=== PATIENT | female | born 1990 | race Caucasian/White ===

== ENCOUNTER → 2016-07-11 | Outpatient (REF) | payer OTHER | LOC: M LAB REF 20:26 | PROVIDERS: ATTEND Physician Assistant | DX: R30.0 Dysuria (principal) ==

== ENCOUNTER → 2017-05-17 | Outpatient (CLI) | payer OTHER ==
[2017-05-17 13:36] LABS: BASO % 0.6 % (0.0-1.0); EOS # 0.1 10^3/uL (0.0-0.50); EOS % 1.7 % (0.0-3.0); HEMATOCRIT 41.1 % (36.0-47.0); HEMOGLOBIN 13.6 g/dl (12.0-16.0); IMMATURE GRANULOCYTE % 0.4 % (0-0); LYMPH # 1.9 10^3/uL (1.5-6.5); LYMPH % 26.9 % (24.0-44.0); MEAN CORPUSCULAR HGB CONC 33.1 g/dl (32.0-36.5); MEAN CORPUSCULAR VOLUME 87.6 fl (80.0-96.0); MONO # 0.5 10^3/uL (0.0-0.8); MONO % 6.4 % (0.0-5.0); NEUTROPHILS # 4.6 10^3/uL (1.8-7.7); PLATELET COUNT, AUTOMATED 367 10^3/uL (150-450); RED BLOOD COUNT 4.69 10^6/uL (4.00-5.40); RED CELL DISTRIBUTION WIDTH 12.9 % (11.5-14.5); WHITE BLOOD COUNT 7.1 10^3/uL (4.0-10.0)
[2017-05-17 14:15] LABS: ALBUMIN 4.6 GM/DL (3.2-5.2); ALBUMIN/GLOBULIN RATIO 1.44 (1.00-1.93); ALKALINE PHOSPHATASE 73 U/L (45-117); ALT/SGPT 27 U/L (12-78); ANION GAP 7 MEQ/L (8-16); AST/SGOT 10 U/L (7-37); BILIRUBIN,TOTAL 0.5 MG/DL (0.2-1.0); BLOOD UREA NITROGEN 17 MG/DL (7-18); CALCIUM LEVEL 9.5 MG/DL (8.5-10.1); CARBON DIOXIDE LEVEL 29 MEQ/L (21-32); CHLORIDE LEVEL 106 MEQ/L (98-107); CREATININE FOR GFR 0.79 MG/DL (0.55-1.02); FERRITIN 33 NG/ML (8-252); FREE T4 0.88 NG/DL (0.76-1.46); GLOMERULAR FILTRATION RATE > 60.0 (>60); GLUCOSE, FASTING 85 MG/DL (70-100); SODIUM LEVEL 142 MEQ/L (136-145); TOTAL PROTEIN 7.8 GM/DL (6.4-8.2)
[2017-05-19 14:12] LABS: ANA (HEP2) Negative (.); DEHYDROEPIANDROSTERONE UNCONJ 414 ng/dL (31-701)
== END ==
LOC: M WUC 09:13
DX: F33.1 Major depressive disorder, recurrent, moderate (principal); L65.9 Nonscarring hair loss, unspecified
CPT/HCPCS: 84403

== ENCOUNTER → 2017-06-27 | Outpatient (CLI) | payer OTHER ==
[2017-06-30 00:06] LABS: EBV VIRAL CAPSID AG IgM <36.0 U/mL (0.0-35.9)
== END ==
LOC: M WUC 16:46
DX: R53.83 Other fatigue (principal); L65.9 Nonscarring hair loss, unspecified; F33.1 Major depressive disorder, recurrent, moderate
CPT/HCPCS: 86665

== ENCOUNTER → 2018-05-10 | Outpatient (CLI) | payer OTHER ==
--- NOTE | 2018-05-10 20:35 | REP ---
FIRST TRIMESTER TRANSABDOMINAL AND ENDOVAGINAL PROBE OB ULTRASOUND: 05/10/2018. Clinical history: Supervision of . Findings: Transabdominal and endovaginal probes were utilized. Bladder was empty. Uterus retroverted and showing a gestational sac in the body and fundus. There is a yolk sac visible and a pole with a crown-rump length of 1.4 cm corresponding to 7 weeks 5 days. This would give an EDC of 12/22/2018. heart rate 153 bpm. No subchorionic bleed. Left ovary shows a 1.8 x 1.5 cm corpus luteum. The ovary measures 3.4 x 2.6 x 2.1 cm. It has normal color flow and Doppler tracings. Resistive index 0.55. No adjacent free fluid, solid mass or torsion. The right ovary is 2.7 x 2 x 1.7 cm. No solid or cystic mass. Normal color flow and Doppler tracing shows resistive index 0.48, normal. Impression: 1. Single intrauterine gestation at 7 weeks 5 days by crown-rump length with EDC 12/22/2018 by ultrasound, 12/20/2018 by LMP. 2. heart rate 153 and regular, corpus luteum on the left. No pelvic free fluid or solid adnexal mass. Electronically Signed by Jassi Ma MD 05/11/2018 09:13 A
== END ==
LOC: M RAD 17:25
PROVIDERS: ATTEND Nurse Practitioner Family
DX: Z36.9 Encounter for antenatal screening, unspecified (principal); Z3A.01 Less than 8 weeks gestation of pregnancy

== ENCOUNTER 2018-05-29 15:31 | Day surgery (SDC) | payer OTHER ==
[~2018-05-29] VITALS: Ht 167.6 cm; Wt 75.0 kg
[2018-05-29] MEDS ORDERED: ONDA4TAB5 (15:39)
[2018-05-29] MEDS ORDERED: IBUP80TA (15:39)
[2018-05-29] MEDS ORDERED: APAP/CODEINE (15:39)
[2018-05-29] MEDS ORDERED: AMOX500C (15:39)
[2018-05-29] MEDS ORDERED: KETOROLAC 30 MG/ML VIAL (J1885) IV ONE (17:15)
[2018-05-29] MEDS ORDERED: NS 1,000 ML IV ONE (17:15)
[2018-05-29] MEDS ORDERED: ONDANSETRON 4MG/2ML VIAL (J2405) IV ONE (17:15)
[2018-05-29 17:17] LABS: BASO % 0.2 % (0.0-1.0); EOS % 0.1 % (0.0-3.0); HEMATOCRIT 32.5 % (36.0-47.0); HEMOGLOBIN 10.8 g/dl (12.0-15.5); LYMPH # 0.7 10^3/uL (1.5-6.5); LYMPH % 3.1 % (24.0-44.0); MEAN CORPUSCULAR HEMOGLOBIN 29.2 pg (27.0-33.0); MEAN CORPUSCULAR HGB CONC 33.2 g/dl (32.0-36.5); MEAN CORPUSCULAR VOLUME 87.8 fl (80.0-96.0); MONO # 0.9 10^3/uL (0.0-0.8); MONO % 3.9 % (0.0-5.0); NEUTROPHILS % 91.8 % (36.0-66.0); PLATELET COUNT, AUTOMATED 320 10^3/uL (150-450); WHITE BLOOD COUNT 21.8 10^3/uL (4.0-10.0)
[2018-05-29] MEDS ORDERED: ACETAMINOPHEN 325 MG TAB PO ONE (17:45)
[2018-05-29 17:50] LABS: BLOOD UREA NITROGEN 10 MG/DL (7-18); CALCIUM LEVEL 8.5 MG/DL (8.5-10.1); CARBON DIOXIDE LEVEL 26 MEQ/L (21-32); CHLORIDE LEVEL 103 MEQ/L (98-107); CREATININE FOR GFR 0.59 MG/DL (0.55-1.30); GLOMERULAR FILTRATION RATE > 60.0 (>60); GLUCOSE, FASTING 97 MG/DL (70-100); HCG, SERUM QUANTITATIVE 2924 MIU/ML; POTASSIUM SERUM 3.6 MEQ/L (3.5-5.1); SODIUM LEVEL 137 MEQ/L (136-145)
--- NOTE | 2018-05-29 20:27 | REPVR ---
EXAM: US First Trimester, Transabdominal EXAM DATE/TIME: 05/29/2018 7:53 PM CLINICAL HISTORY: 28 years old, female; Signs and symptoms; Lmp or gestational age (in weeks): 10; Antepartum complications; Bleeding; ; Additional info: 10+ weeks preg, took ab pill 5d ago, ? retained prod TECHNIQUE: Real-time transabdominal obstetrical ultrasound of the maternal pelvis and a first trimester , less than 14 weeks 0 days, with image documentation. COMPARISON: US OBS SINGEL GEST 02/19/2012 9:18 PM FINDINGS: GESTATION: Gestation: No evidence of a gestational sac demonstrated. No pole or yolk sac demonstrated. MATERNAL: Uterus: Uterus measures 8.7 x 6.7 x 8.3 cm. Complex widening of the endometrial cavity which measures 1.8 cm maximally. Increased blood flow in the uterus adjacent to the endometrium and uterine fundus as well. Cervix: Unremarkable. Right adnexa: Right ovary measures 2.9 x 1.1 x 1.6 cm. RI 0.44. Left adnexa: Left ovary measures 3.4 x 2.6 1.9 cm. RI 0.7 Intraperitoneal: No intraperitoneal free fluid. IMPRESSION: Complex widening the endometrial cavity likely related to the presence of a hematoma. Findings consistent with early loss with probable retained products of conception. Continued followup suggested. Electronically signed by: Osbaldo Davenport On 05/29/2018 20:26:47 PM
[2018-05-29] MEDS ORDERED: AMOX500C PO (20:44)
[2018-05-29] MEDS ORDERED: ONDA4TAB5 PO (20:44)
[2018-05-29] MEDS ORDERED: IBUP1TAB7 PO (20:44)
[2018-05-29] MEDS ORDERED: ACET30TAB PO (20:44)
[2018-05-29] MEDS ORDERED: TESS100C PO (21:07)
[2018-05-29] MEDS ORDERED: MORPHINE 4 MG/ML 1ML VIAL/SYRINGE (J2270) IV ONE (22:45)
[2018-05-29] MEDS ORDERED: MORPHINE 4 MG/ML 1ML VIAL/SYRINGE (J2270) As Ordered ONE (22:47)
[2018-05-30] VITALS (7 sets, daily range): BP systolic 106–134; BP diastolic 53–67
[2018-05-30] MEDS ORDERED: ceFAZolin 2 GM/D5W 50 ML IV BAG (J0690 PER 500MG) As Ordered ONE (00:39)
[2018-05-30] MEDS ORDERED: dexameTHASONE 4 MG/ML 1ML VIAL (J1100) As Ordered ONE (01:17)
[2018-05-30] MEDS ORDERED: KETOROLAC 60 MG/2 ML VIAL (J1885) As Ordered ONE (01:17)
[2018-05-30] MEDS ORDERED: LIDOCAINE 2% INJ 100 MG/5 ML SDV (FOR ANES.) As Ordered ONE (01:17)
[2018-05-30] MEDS ORDERED: fentaNYL 100 MCG/2 ML INJECTION (J3010) As Ordered ONE (01:17)
[2018-05-30] MEDS ORDERED: ONDANSETRON 4MG/2ML VIAL (J2405) As Ordered ONE (01:17)
[2018-05-30] MEDS ORDERED: PROPOFOL 200 MG/20 ML VIAL As Ordered ONE (01:17)
[2018-05-30] MEDS ORDERED: MIDAZOLAM INJ 2 MG/2 ML VIAL (J2250) As Ordered ONE (01:17)
[2018-05-30] MEDS ORDERED: METHYLERGONOVINE MALEATE 0.2 MG/ML VIAL (J2210) As Ordered ONE (01:24)
[2018-05-30] MEDS ORDERED: MORPHINE 10 MG/ML 1ML VIAL (J2270) IV PRN (02:30)
[2018-05-30] MEDS ORDERED: NALBUPHINE HCL 10 MG/ML AMP (J2300) IV PRN (02:30)
[2018-05-30] MEDS ORDERED: fentaNYL 100 MCG/2 ML INJECTION (J3010) IV PRN (02:30)
[2018-05-30] MEDS ORDERED: KETOROLAC 30 MG/ML VIAL (J1885) IV PRN (02:30)
[2018-05-30] MEDS ORDERED: ONDANSETRON 4MG/2ML VIAL (J2405) IV PRN ×2 (02:30→03:00)
[2018-05-30] MEDS ORDERED: HYDROMORPHONE HCL 0.5 MG/ 0.5 ML SYRINGE (J1170 PER 1) IV PRN (02:30)
[2018-05-30] MEDS ORDERED: MEPERIDINE INJ 25 MG/ML VIAL (J2175) IV PRN (02:30)
[2018-05-30] MEDS ORDERED: PERCOCET 5MG/325MG TAB PO PRN (02:30)
[2018-05-30] MEDS ORDERED: NORCO, ANEXSIA 5/325MG TABLET (HYDROcodone/ACETAMINOPHEN) PO PRN (02:30)
[2018-05-30] MEDS ORDERED: LR 1,000 ML IV SCH ×2 (02:30→03:00)
[2018-05-30] MEDS ORDERED: PROMETHAZINE INJ 25 MG/ML VIAL (J2550) IV PRN (02:30)
[2018-05-30] MEDS ORDERED: diphenhydrAMINE INJ 50MG/ML VIAL (J1200) IV PRN (02:30)
[2018-05-30] MEDS ORDERED: METOCLOPRAMIDE INJ 10MG/2ML VIAL (J2765) IV PRN (02:30)
[2018-05-30] MEDS ORDERED: PIPERACILLIN/TAZOBACTAM SOD 3.375 GM in D5W MINI-BAG PLUS 50 ML IV SCH (03:00)
[2018-05-30] MEDS ORDERED: ACETAMINOPHEN 500 MG TAB PO PRN (03:00)
[2018-05-30 06:34] LABS: HEMATOCRIT 25.9 % (36.0-47.0); MEAN CORPUSCULAR HEMOGLOBIN 29.1 pg (27.0-33.0); MEAN CORPUSCULAR VOLUME 85.8 fl (80.0-96.0); PLATELET COUNT, AUTOMATED 265 10^3/uL (150-450); RED BLOOD COUNT 3.02 10^6/uL (4.00-5.40)
[2018-05-30 06:45] LABS: HEMOGLOBIN 8.8 g/dl (12.0-15.5)
[2018-05-30] MEDS ORDERED: AUGM875T28 PO (09:54)
--- NOTE | 2018-05-30 13:28 | RO ---
DATE OF OPERATION: 05/30/2018 PREOPERATIVE DIAGNOSIS: Incomplete septic . POSTOPERATIVE DIAGNOSIS: Incomplete septic . PROCEDURE: Dilation, evacuation, and curettage (D, E, and C). SURGEON: Levi Luther MD GAME DESIGN INSTRUCTOR: ANESTHESIA: General endotracheal. ESTIMATED BLOOD LOSS: 300 mL. URINE OUTPUT: 400 mL. FINDINGS: Moderate amount of products of conception, eusebio pus coming from the cervical os upon dilation of the cervix, retroverted mildly enlarged uterus, moderate uterine atony encountered during the procedure. DESCRIPTION OF PROCEDURE: Operative summary: The patient taken to the operating room, where general endotracheal anesthesia was induced. She was prepped and draped in sterile fashion in the dorsal lithotomy position. The bladder was emptied with a catheter. A speculum was placed in the vagina. The anterior lip of the cervix was grasped with a tenaculum. The cervix was dilated with taper dilators. As noted above, pus was coming from the cervix upon dilation. A #9-mm suction curette was placed through the internal os. The suction device was activated, and the curette was gently rotated until products of conception were noted coming through the suction tubing. Sharp curettage was performed. Moderate uterine atony was encountered. The patient received intramuscular (IM) Methergine during the procedure. That, along with fundal massage, improved uterine tone, and bleeding stopped. The uterine cavity was deemed to be empty. All instruments were removed. Sponge and instrument counts were correct.
== END 2018-05-30 11:30 | disposition home or self-care (01) ==
LOC: M ED 15:31 → M SDC 21:30 → M PED 05-30 02:30 → M SDC 05-30 11:30
PROVIDERS: ATTEND Specialist
DX: O03.37 Sepsis following incomplete spontaneous abortion (principal); F90.9 Attention-deficit hyperactivity disorder, unspecified type; Z72.0 Tobacco use
CPT/HCPCS: 36415; 59820; 76801; 76817; 80048; 81001; 84702; 85025; 85027; 86850; 86900; 86901; 87088; 87186; 88305; 96374; 96375; 99284; J0690; J1100; J1885; J2210; J2250; J2270; J2405; J2543; J3010

== ENCOUNTER 2019-04-14 10:20 | Emergency (ER) | payer OTHER ==
[~2019-04-14] VITALS: Ht 167.6 cm; Wt 69.4 kg
[~2019-04-14 10:20] MED LIST: ACET-716 PO; AMOX500C; AMOX500C PO; APAP/CODEINE; AUGM875T28 PO; IBUP1TAB7 PO; IBUP80TA; ONDA4TAB5; ONDA4TAB5 PO; TESS100C PO
[2019-04-14 11:32] LABS: HEMATOCRIT 39.5 % (36.0-47.0); HEMOGLOBIN 12.7 g/dl (12.0-15.5); MEAN CORPUSCULAR HEMOGLOBIN 28.2 pg (27.0-33.0); MEAN CORPUSCULAR HGB CONC 32.2 g/dl (32.0-36.5); MEAN CORPUSCULAR VOLUME 87.8 fl (80.0-96.0); PLATELET COUNT, AUTOMATED 373 10^3/uL (150-450); WHITE BLOOD COUNT 8.2 10^3/uL (4.0-10.0)
--- NOTE | 2019-04-14 12:15 | REP ---
Clinical: Vaginal bleeding . Technique: Transabdominal pelvic ultrasound followed by transvaginal examination for better evaluation of the endometrium and adnexa with color Doppler evaluation of the ovaries. Findings: Bladder is collapsed. Normal anteverted uterus measures 9.1 x 4.2 x 5.6 cm. The endometrial complex is thickened and there is a 4 mm cystic area suggesting the possibility of early gestational sac versus endometrial cyst. Small amount of endocervical fluid is also identified. Bilateral ovaries are normal in appearance and vascularity without evidence for torsion. Right ovary measures 2.6 x 3.2 x 4.8 cm with 2.2 x 3.2 x 1.8 cm cyst ; R I = 0.53 . Left ovary measures 3.0 x 2.0 x 2.8 cm ; R I = 0.45 . No pelvic fluid . Impression: 1. 4 mm cystic area within the endometrium. Correlation with test is recommended. Differential diagnosis includes early gestational sac and endometrial cyst. 2. Right ovarian cyst. No evidence for torsion. Electronically Signed by Jan Olguin MD 04/14/2019 12:06 P
[2019-04-14 12:51] LABS: ALBUMIN 3.9 GM/DL (3.2-5.2); ALT/SGPT 22 U/L (12-78); BILIRUBIN,DIRECT 0.1 MG/DL (0.0-0.2); BILIRUBIN,TOTAL 0.3 MG/DL (0.2-1.0); BLOOD UREA NITROGEN 17 MG/DL (7-18); CARBON DIOXIDE LEVEL 27 MEQ/L (21-32); CHLORIDE LEVEL 104 MEQ/L (98-107); CREATININE FOR GFR 0.64 MG/DL (0.55-1.30); GLOMERULAR FILTRATION RATE > 60.0 (>60); GLUCOSE, FASTING 70 MG/DL (70-100); LIPASE 73 U/L (73-393); POTASSIUM SERUM 3.9 MEQ/L (3.5-5.1); SODIUM LEVEL 139 MEQ/L (136-145); TOTAL PROTEIN 7.2 GM/DL (6.4-8.2)
[2019-04-14 15:10] LABS: CHLAMYDIA DNA AMPLIFICATION NEGATIVE (NEGATIVE); GC DNA AMPLIFICATION NEGATIVE (NEGATIVE)
[2019-04-14 16:15] VITALS: BP 133/75
== END 2019-04-14 16:20 | disposition home or self-care (01) ==
LOC: M ED 10:20
DX: O34.81 Maternal care for other abnormalities of pelvic organs, first trimester (principal); O26.851 Spotting complicating pregnancy, first trimester; Z86.19 Personal history of other infectious and parasitic diseases

== ENCOUNTER → 2019-06-17 | Outpatient (CLI) | payer OTHER ==
[~2019-06-17] MED LIST changes: +ONDA-83; +ONDA-83 PO; -ONDA4TAB5; -ONDA4TAB5 PO
[2019-06-17 17:59] LABS: BASO % 0.4 % (0.0-1.0); EOS # 0.1 10^3/uL (0.0-0.5); EOS % 0.8 % (0.0-3.0); HEMATOCRIT 37.7 % (36.0-47.0); HEMOGLOBIN 12.6 g/dl (12.0-15.5); LYMPH # 1.6 10^3/uL (1.5-5.0); LYMPH % 15.9 % (24.0-44.0); MEAN CORPUSCULAR HEMOGLOBIN 29.6 pg (27.0-33.0); MEAN CORPUSCULAR HGB CONC 33.4 g/dl (32.0-36.5); MEAN CORPUSCULAR VOLUME 88.5 fl (80.0-96.0); MONO # 0.7 10^3/uL (0.0-0.8); MONO % 7.6 % (0.0-5.0); NEUTROPHILS # 7.3 10^3/uL (1.5-8.5); NEUTROPHILS % 74.9 % (36.0-66.0); PLATELET COUNT, AUTOMATED 296 10^3/uL (150-450); RED BLOOD COUNT 4.26 10^6/uL (4.00-5.40); WHITE BLOOD COUNT 9.7 10^3/uL (4.0-10.0)
[2019-06-18 05:06] LABS: CHLAMYDIA DNA AMPLIFICATION NEGATIVE (NEGATIVE); GC DNA AMPLIFICATION NEGATIVE (NEGATIVE)
[2019-06-18 11:46] LABS: HEPATITIS C VIRUS ABY INDEX < 0.0 INDEX (<0.8); HIV 1&2 SCREEN CENTAUR NEGATIVE (NEGATIVE); RUBELLA IgG QUALITATIVE IMMUNE (IMMUNE)
== END ==
LOC: M PLALAB 15:27
PROVIDERS: ATTEND Advanced Practice Midwife
DX: O34.211 Maternal care for low transverse scar from previous cesarean delivery (principal)

== ENCOUNTER → 2019-07-16 | Outpatient (CLI) | payer OTHER | LOC: M WHC 08:39 | PROVIDERS: ATTEND Obstetrics & Gynecology | DX: O34.211 Maternal care for low transverse scar from previous cesarean delivery (principal) ==

== ENCOUNTER → 2019-08-07 | Outpatient (CLI) | payer OTHER ==
--- NOTE | 2019-08-08 04:26 | REP ---
Clinical: Anatomical evaluation. Comparison: 04/14/2019 . Findings: Examination demonstrates a single live intrauterine in cephalic presentation. motion is identified by technologist. Placenta is noted anterior and grade I without evidence for placenta previa or abruption. Amniotic fluid volume is normal. Cervix measures 3.0 cm in length and appears closed. No evidence for nuchal cord. Gestational age by current measurements 21 weeks 3 days with YOGESH 12/15/2019 . FHR equals 132 beats per minute. BPD 5.1 cm 21 weeks 3 days HC 19.4 cm 21 weeks 4 days AC 16.7 cm 21 weeks 5 days FL 3.3 cm 20 weeks 3 days HL 3.5 cm 22 weeks 0 days HC/AC ratio 1.17 Estimated weight 407 grams ( 36 percentile). Anatomical assessment demonstrates normal structures including cranium, choroid plexus, cavum, cerebellum/posterior fossa, facial features, lungs, four-chamber heart/ventricular outflow tracts, diaphragm, stomach, cord insertion/three-vessel cord, kidneys/bladder, spine, and extremities. Impression: Single live intrauterine in cephalic presentation demonstrating appropriate estimated weight. Anatomical assessment is complete and normal.
== END ==
LOC: M WHC 14:02
PROVIDERS: ATTEND Obstetrics & Gynecology
DX: O34.211 Maternal care for low transverse scar from previous cesarean delivery (principal); Z3A.21 21 weeks gestation of pregnancy

== ENCOUNTER → 2019-09-30 | Outpatient (REF) | payer OTHER ==
[2019-09-30 17:31] LABS: HEMATOCRIT 34.3 % (36.0-47.0); HEMOGLOBIN 11.2 g/dl (12.0-15.5); MEAN CORPUSCULAR HEMOGLOBIN 29.6 pg (27.0-33.0); MEAN CORPUSCULAR HGB CONC 32.7 g/dl (32.0-36.5); MEAN CORPUSCULAR VOLUME 90.7 fl (80.0-96.0); PLATELET COUNT, AUTOMATED 252 10^3/uL (150-450); RED BLOOD COUNT 3.78 10^6/uL (4.00-5.40); WHITE BLOOD COUNT 13.8 10^3/uL (4.0-10.0)
== END ==
LOC: M PLALAB 14:47
PROVIDERS: ATTEND Obstetrics & Gynecology
DX: O34.211 Maternal care for low transverse scar from previous cesarean delivery (principal)

== ENCOUNTER 2019-11-04 09:58 | Outpatient (CLI) | payer OTHER ==
[~2019-11-04] VITALS: Ht 167.6 cm; Wt 85.7 kg
[2019-11-04] MEDS ORDERED: NITR100C2 (10:25)
[2019-11-04] MEDS ORDERED: PRENTAB9 PO (10:25)
[2019-11-04 10:58] VITALS: BP 124/59
[2019-11-04] MEDS ORDERED: PERCOCET 5MG/325MG TAB PO ONE (11:30)
[2019-11-04 12:54] VITALS: BP 122/77
--- NOTE | 2019-11-04 19:10 | IPN ---
DATE: 11/04/2019 SUBJECTIVE: A 29-year-old 4, para 2 female at 34-2/7 weeks gestation, presents with lower abdominal cramping near her groin and lower back pain for the last 2-3 days. She was seen at urgent care yesterday and diagnosed with a urinary tract infection (UTI). She was started on Macrobid. Denies fevers. Good movement. The pain that she is feeling, cramping is not timeable. OBJECTIVE: Afebrile. Vital signs stable. No apparent distress. Head and neck exam: Normal. Lungs: Clear. Heart: Regular. Abdomen: Nontender, gravid, soft. heart tones: Category 1. Contractions: Rare. Extremities: Nontender. ASSESSMENT: 29-year-old 4, para 2 female at 34-2/7 weeks gestation with ligament pain. Patient given one Percocet tablet with good relief. Patient observed for an extended time. She will be discharged home.
== END 2019-11-04 13:12 | disposition home or self-care (01) ==
LOC: M LDO 09:58
PROVIDERS: ATTEND Specialist
DX: O26.893 Other specified pregnancy related conditions, third trimester (principal); R10.2 Pelvic and perineal pain; Z3A.34 34 weeks gestation of pregnancy

== ENCOUNTER → 2019-11-11 | Outpatient (REF) | payer OTHER ==
[~2019-11-11] MED LIST changes: +ACET-683 PO; +IBUP80TA PO; +NITR100C2; +PRENTAB9 PO
== END ==
LOC: M SFHCWAGY 16:52
PROVIDERS: ATTEND Obstetrics & Gynecology
DX: O34.211 Maternal care for low transverse scar from previous cesarean delivery (principal)

== ENCOUNTER → 2019-12-08 | Outpatient (CLI) | payer OTHER | LOC: M LDO 05:00 | PROVIDERS: ATTEND Obstetrics & Gynecology | DX: O47.1 False labor at or after 37 completed weeks of gestation (principal); Z3A.39 39 weeks gestation of pregnancy ==

== ENCOUNTER 2019-12-10 19:03 | Inpatient (IN) | payer OTHER ==
[~2019-12-10] VITALS: Ht 167.6 cm; Wt 86.4 kg
[~2019-12-10 19:03] MED LIST changes: -ACET-683 PO; -IBUP80TA PO
[2019-12-10] MEDS ORDERED: OXYTOCIN 30 UNITS IN 0.9% NaCl 500ML IV BAG (J2590) As Ordered ONE (19:19)
[2019-12-10] MEDS ORDERED: METHYLERGONOVINE MALEATE 0.2 MG TAB PO PRN (20:45)
[2019-12-10] MEDS ORDERED: MEASLES,MUMPS,RUBELLA VACCINE INJ (MMR-II) (90707) SC SCH (20:45)
[2019-12-10] MEDS ORDERED: RHOGAM 300 MCG (1500 IU) INJ (J2790) IM SCH (20:45)
[2019-12-10] MEDS ORDERED: DIBUCAINE 1% OINTMENT 30GM TOP PRN (20:45)
[2019-12-10] MEDS ORDERED: IBUPROFEN 600MG TAB PO PRN (20:45)
[2019-12-10] MEDS ORDERED: LIDOCAINE 1% MDV 20ML VIAL IM ONE (20:45)
[2019-12-10] MEDS ORDERED: DOCUSATE SODIUM 100 MG CAP PO PRN (20:45)
[2019-12-10] MEDS ORDERED: ACETAMINOPHEN TAB 650MG DOSE (2X325MG) PO PRN (20:45)
[2019-12-10] MEDS: IBUPROFEN 800 MG TAB PO PRN (21:01)
[2019-12-10 21:16] LABS: HEMATOCRIT 35.8 % (36.0-47.0); HEMOGLOBIN 11.7 g/dl (12.0-15.5); MEAN CORPUSCULAR HEMOGLOBIN 28.5 pg (27.0-33.0); MEAN CORPUSCULAR HGB CONC 32.7 g/dl (32.0-36.5); MEAN CORPUSCULAR VOLUME 87.1 fl (80.0-96.0); PLATELET COUNT, AUTOMATED 283 10^3/uL (150-450); RED BLOOD COUNT 4.11 10^6/uL (4.00-5.40); WHITE BLOOD COUNT 14.3 10^3/uL (4.0-10.0)
[2019-12-10] MEDS ORDERED: OXYTOCIN DRIP 30 UNITS in IV 1 EA IV SCH (21:23)
[2019-12-10 22:40] VITALS: BP 98/56
[2019-12-10] MEDS: ACETAMINOPHEN 500 MG TAB PO PRN (23:30)
[2019-12-11 06:00] VITALS: BP 142/81
[2019-12-11] MEDS: IBUPROFEN 800 MG TAB PO PRN ×4 (06:10→13:19)
[2019-12-11] MEDS: PRENATAL VITAMINS CHEWABLE TABLET PO SCH (09:00)
[2019-12-11] MEDS: ACETAMINOPHEN 500 MG TAB PO PRN ×2 (09:24→19:54)
[2019-12-12] MEDS: IBUPROFEN 800 MG TAB PO PRN (04:05)
[2019-12-12 06:00] VITALS: BP 101/56
[2019-12-12] MEDS: PRENATAL VITAMINS CHEWABLE TABLET PO SCH (08:27)
[2019-12-12] MEDS: ACETAMINOPHEN 500 MG TAB PO PRN (08:28)
[2019-12-12] MEDS ORDERED: IBUP80TA PO (09:25)
[2019-12-12] MEDS ORDERED: ACET-683 PO (09:25)
== END 2019-12-12 12:15 | disposition home or self-care (01) | DRG 560 ==
LOC: M LDO 19:03 → M LDI 19:07 → M OBS 22:35
PROVIDERS: ADMIT Advanced Practice Midwife; ATTEND Advanced Practice Midwife
PROC: 10E0XZZ Delivery of Products of Conception, External Approach (ICD-10-PCS; principal; 2019-12-10)
PROC: 0HQ9XZZ Repair Perineum Skin, External Approach (ICD-10-PCS; 2019-12-10)
DX: O34.211 Maternal care for low transverse scar from previous cesarean delivery (principal); O32.6XX0 Maternal care for compound presentation, not applicable or unspecified; Z3A.39 39 weeks gestation of pregnancy; O70.0 First degree perineal laceration during delivery; Z37.0 Single live birth

== ENCOUNTER → 2020-02-13 | Outpatient (CLI) | payer OTHER ==
[~2020-02-13] MED LIST changes: +ACET-683 PO; +IBUP80TA PO
--- NOTE | 2020-02-14 11:56 | ECGEPIP ---
[facility] Test Date: 2020-02-13 Pat Name: JESSIE YEE Department: Room: - Gender: Female [employer]idential [employer] Manager: KATIE : 1990 Requested By: Juliann Taylor Order Number: [id number] Reading MD: Sandeep Augustin Measurements Intervals [place] Rate: 68 P: 50 OH: 145 QRS: 75 QRSD: 104 T: 38 QT: 391 QTc: 417 Interpretive Statements SINUS RHYTHM WITH SINUS ARRHYTHMIA INCOMPLETE RIGHT BUNDLE BRANCH BLOCK Electronically Signed on 02-14-2020 11:56:43 EDT by Sandeep Augustin
== END ==
LOC: M EKG 13:34
PROVIDERS: ATTEND Nurse Practitioner Psychiatric/Mental Health
DX: Z79.899 Other long term (current) drug therapy (principal)

== ENCOUNTER → 2020-03-09 | Outpatient (REF) | payer OTHER | LOC: M SFHCWAGY 13:28 | PROVIDERS: ATTEND Specialist | DX: Z12.4 Encounter for screening for malignant neoplasm of cervix (principal); R87.610 Atypical squamous cells of undetermined significance on cytologic smear of cervix (ASC-US) ==

== ENCOUNTER → 2020-08-30 | Outpatient (CLI) | payer OTHER ==
[2020-08-30 18:46] LABS: HEMATOCRIT 36.1 % (36.0-47.0); HEMOGLOBIN 12.2 g/dl (12.0-15.5); MEAN CORPUSCULAR HGB CONC 33.8 g/dl (32.0-36.5); MEAN CORPUSCULAR VOLUME 88.7 fl (80.0-96.0); PLATELET COUNT, AUTOMATED 307 10^3/uL (150-450); RED BLOOD COUNT 4.07 10^6/uL (4.00-5.40); WHITE BLOOD COUNT 12.1 10^3/uL (4.0-10.0)
[2020-08-30 19:59] LABS: HEPATITIS C VIRUS ABY INDEX < 0.0 INDEX (<0.8); HIV 1&2 SCREEN CENTAUR NEGATIVE (NEGATIVE)
== END ==
LOC: M WHC 14:27
PROVIDERS: ATTEND Obstetrics & Gynecology
DX: Z34.82 Encounter for supervision of other normal pregnancy, second trimester (principal); Z36.89 Encounter for other specified antenatal screening; Z3A.17 17 weeks gestation of pregnancy

== ENCOUNTER → 2020-09-17 | Outpatient (CLI) | payer OTHER ==
--- NOTE | 2020-09-17 11:31 | REP ---
INDICATION: ANATOMY COMPARISON: None. TECHNIQUE: Transabdominal obstetrical ultrasound with color Doppler evaluation. FINDINGS: Examination demonstrates a single live intrauterine in cephalic presentation. motion is identified by technologist. Placenta is noted anterior and grade 1 without evidence for placenta previa or abruption. Amniotic fluid volume is normal. Cervix measures 3.8 cm in length and appears closed. Incidental placental lakes are identified. Gestational age by LMP 19 weeks 5 days with YOGESH 02/06/2021. Gestational age by current measurements 19 weeks 0 days with YOGESH 02/11/2021. FHR equals 153 beats per minute. Estimated weight 260 grams (less than 5thpercentile). Anatomical assessment demonstrates normal structures including cranium, choroid plexus, cavum, cerebellum/posterior fossa, facial features, lungs, four-chamber heart/ventricular outflow tracts, diaphragm, stomach, cord insertion/three-vessel cord, kidneys/bladder, and extremities. IMPRESSION: 1. Single live intrauterine in cephalic presentation. Less than expected estimated weight. 2. Nonspecific placental lakes noted. 3. Limited evaluation of the spine. Remainder of the anatomical assessment is complete and normal. <Electronically signed by Jan Olguin > 09/17/20 [id number]
== END ==
LOC: M WHC 10:30
PROVIDERS: ATTEND Obstetrics & Gynecology
DX: Z36.89 Encounter for other specified antenatal screening (principal); Z3A.19 19 weeks gestation of pregnancy; O43.192 Other malformation of placenta, second trimester

== ENCOUNTER → 2020-10-27 | Outpatient (CLI) | payer OTHER ==
--- NOTE | 2020-10-27 11:34 | REP ---
INDICATION: PREG F/U ANATOMY SPINE COMPARISON: 09/17/2020 TECHNIQUE: Transabdominal obstetrical ultrasound with color Doppler evaluation. FINDINGS: Examination demonstrates a single live intrauterine in cephalic presentation. motion is identified by technologist. Placenta is noted anterior and grade 0 without evidence for placenta previa or abruption. Amniotic fluid volume is normal. Cervix measures 3.9 cm in length and appears closed.. Selected gestational age: 25 weeks 3 days with YOGESH 02/06/2021. Gestational age by current measurements 25 weeks 0 days with YOGESH 02/09/2021. FHR equals 139 beats per minute. Estimated weight 701 grams (10thpercentile). Anatomical assessment demonstrates normal structures including cranium, choroid plexus, cavum, cerebellum/posterior fossa, facial features, lungs, four-chamber heart/ventricular outflow tracts, diaphragm, stomach, cord insertion/three-vessel cord, kidneys/bladder, spine, and extremities. IMPRESSION: Single live intrauterine in cephalic presentation. Estimated weight falls within normal range. Anatomical assessment is complete and normal. <Electronically signed by Jan Olguin > 10/27/20 [id number]
== END ==
LOC: M RAD 10:37
PROVIDERS: ATTEND Advanced Practice Midwife
DX: O34.211 Maternal care for low transverse scar from previous cesarean delivery (principal); Z3A.25 25 weeks gestation of pregnancy

== ENCOUNTER → 2020-11-08 | Outpatient (CLI) | payer OTHER | LOC: M WHC 14:39 | PROVIDERS: ATTEND Obstetrics & Gynecology | DX: Z36.89 Encounter for other specified antenatal screening (principal); Z3A.27 27 weeks gestation of pregnancy; Z53.9 Procedure and treatment not carried out, unspecified reason ==

== ENCOUNTER → 2020-11-10 | Outpatient (CLI) | payer OTHER ==
--- NOTE | 2020-11-10 13:49 | REP ---
INDICATION: IUGR,GROWTH,BPP. COMPARISON: 10/27/2020. TECHNIQUE: Real-time sonographic evaluation of the gravid uterus performed. FINDINGS: Estimated gestational age is27 weeks 3 days, EDC 02/06/2021. Today's measurements indicate appropriate growth. Presentation: Cephalic Placenta anterior, grade 0, without evidence of placenta previa. heart rate is recorded at 142 beats per minute. Amniotic fluid is subjectively normal. JESSICA 17.0, normal range 9.5-22.7. Biophysical profile score 8/8. Closed cervical length is measured at 3.3 cm. Biometry chart: BPD: 69 mm, 27 weeks 4 days, 53rd percentile. HC: 254 mm, 27 weeks 4 days, 53rd percentile AC: 236 mm, 28 weeks 0 days, 60th percentile Femur length: 51 mm, 27 weeks 3 days, 49th percentile HC to AC ratio: 1.07, normal range 1.00-1.18. Estimated weight: 1112g, 48th percentile. IMPRESSION: Viable single intrauterine gestation as above. <Electronically signed by Kirt Menon > 11/10/20 [id number]
== END ==
LOC: M WHC 13:15
PROVIDERS: ATTEND Obstetrics & Gynecology
DX: Z36.89 Encounter for other specified antenatal screening (principal); Z3A.27 27 weeks gestation of pregnancy

== ENCOUNTER → 2020-12-17 | Outpatient (CLI) | payer OTHER ==
[2020-12-17 13:55] LABS: HEMATOCRIT 32.5 % (36.0-47.0); HEMOGLOBIN 10.6 g/dl (12.0-15.5); MEAN CORPUSCULAR HEMOGLOBIN 29.9 pg (27.0-33.0); MEAN CORPUSCULAR HGB CONC 32.6 g/dl (32.0-36.5); MEAN CORPUSCULAR VOLUME 91.8 fl (80.0-96.0); PLATELET COUNT, AUTOMATED 255 10^3/uL (150-450); RED BLOOD COUNT 3.54 10^6/uL (4.00-5.40); WHITE BLOOD COUNT 12.9 10^3/uL (4.0-10.0)
== END ==
LOC: M PLALAB 11:13
PROVIDERS: ATTEND Advanced Practice Midwife
DX: O34.211 Maternal care for low transverse scar from previous cesarean delivery (principal)

== ENCOUNTER → 2021-01-12 | Outpatient (REF) | payer OTHER | LOC: M SFHCWAGY 10:26 | PROVIDERS: ATTEND Advanced Practice Midwife | DX: O34.211 Maternal care for low transverse scar from previous cesarean delivery (principal); Z3A.00 Weeks of gestation of pregnancy not specified ==

== ENCOUNTER → 2021-01-13 | Outpatient (CLI) | payer OTHER ==
--- NOTE | 2021-01-13 10:45 | REP ---
INDICATION: GROWTH SIZE DATE DISCREPENCY. COMPARISON: Comparison study November 10, 2020. TECHNIQUE: Transabdominal obstetric sonography FINDINGS: Scanning through the gravid uterus demonstrates a viable single intrauterine gestation in cephalic lie. motion is observed and heart rate is recorded at 149 beats per minute. A anterior placenta is seen, grade 2, without evidence of placenta previa. Closed cervical length is measured at 3.4 cm transabdominally. No extrauterine abnormality is observed. Amniotic fluid is subjectively normal. Biometry chart: BPD 9.5 cm, 38 weeks 6 days Head circumference 33.3 cm, 38 weeks 0 days Abdominal circumference 34.2 cm, 38 weeks 1 day Femur length 7.1 cm, 36 weeks 3 days Humeral length 6.0 cm, 34 weeks 5 days HC AC ratio normal 1.0 Cephalic index normal 0.8 Estimated weight 3317 g, 7 lb 4 oz, 84th percentile for 36 weeks 4 days JESSICA normal 20.4 cm IMPRESSION: Viable single intrauterine gestation at 37 weeks 2 days by today's composite sonographic criteria. YOGESH by today's sonography February 01, 2021. No complication identified. Expected gestational age estimate based on known YOGESH of February 06, 2021 is 36 weeks 4 days. Appropriate interval growth. <Electronically signed by Heri Flowers > 01/13/21 0628
== END ==
LOC: M WHC 09:43
PROVIDERS: ATTEND Obstetrics & Gynecology
DX: Z36.2 Encounter for other antenatal screening follow-up (principal); O26.843 Uterine size-date discrepancy, third trimester; Z3A.37 37 weeks gestation of pregnancy

== ENCOUNTER → 2022-01-10 | Outpatient (REF) | payer OTHER ==
[~2022-01-10] MED LIST changes: +COLA100C5 PO; +IBUP-1022 PO
== END ==
LOC: M SFHCWAGY 13:27
PROVIDERS: ATTEND Obstetrics & Gynecology
DX: Z01.42 Encounter for cervical smear to confirm findings of recent normal smear following initial abnormal smear (principal); Z12.4 Encounter for screening for malignant neoplasm of cervix

== ENCOUNTER 2022-02-02 10:20 | Emergency (ER) | payer OTHER ==
[~2022-02-02] VITALS: Ht 167.6 cm; Wt 82.2 kg
[2022-02-02] MEDS ORDERED: KETOROLAC 30 MG/ML 1ML VIAL IV ONE (11:00)
[2022-02-02] MEDS ORDERED: ONDANSETRON 4MG 2ML VIAL IV ONE (11:00)
[2022-02-02] MEDS ORDERED: NS 1,000 ML IV ONE (11:00)
[2022-02-02] MEDS ORDERED: TIZA10TA (11:43)
[2022-02-02] MEDS ORDERED: MELO15TA28 (11:43)
[2022-02-02] MEDS ORDERED: GABA-1171 PO (11:43)
[2022-02-02 11:51] LABS: BASO # 0.1 10^3/uL (0.0-0.2); BASO % 0.3 % (0.0-1.0); EOS # 0.1 10^3/uL (0.0-0.5); EOS % 0.5 % (0.0-3.0); HEMATOCRIT 41.8 % (36.0-47.0); HEMOGLOBIN 14.2 g/dl (12.0-15.5); LYMPH # 0.7 10^3/uL (1.5-5.0); MEAN CORPUSCULAR HEMOGLOBIN 29.4 pg (27.0-33.0); MEAN CORPUSCULAR VOLUME 86.5 fl (80.0-96.0); MONO # 0.8 10^3/uL (0.0-0.8); MONO % 5.2 % (2.0-8.0); NEUTROPHILS # 12.8 10^3/uL (1.5-8.5); NEUTROPHILS % 88.5 % (36.0-66.0); PLATELET COUNT, AUTOMATED 345 10^3/uL (150-450); RED BLOOD COUNT 4.83 10^6/uL (4.00-5.40); WHITE BLOOD COUNT 14.5 10^3/uL (4.0-10.0)
[2022-02-02 12:33] LABS: ALBUMIN 4.2 GM/DL (3.2-5.2); BILIRUBIN,DIRECT 0.2 MG/DL (0.0-0.2); BILIRUBIN,TOTAL 0.4 MG/DL (0.2-1.0); TOTAL PROTEIN 7.7 GM/DL (6.4-8.2)
[2022-02-02 12:42] LABS: RSV AMPLIFICATION NEGATIVE (NEGATIVE)
[2022-02-02 15:38] VITALS: BP 138/76
== END 2022-02-02 15:41 | disposition home or self-care (01) ==
LOC: M ED 10:20
DX: R10.84 Generalized abdominal pain (principal); R11.2 Nausea with vomiting, unspecified; R19.7 Diarrhea, unspecified; F90.9 Attention-deficit hyperactivity disorder, unspecified type
CPT/HCPCS: 80047; 80076; 81000; 81015; 83605; 83690; 84702; 85025; 87631; 96361; 96374; 96375; 99284; J1885; J2405

== ENCOUNTER → 2022-03-01 | Outpatient (REF) | payer OTHER ==
[~2022-03-01] MED LIST changes: +GABA-1171 PO; +MELO15TA28; +TIZA10TA
== END ==
LOC: M SFHCWAGY 09:10
PROVIDERS: ATTEND Obstetrics & Gynecology
DX: N72 Inflammatory disease of cervix uteri (principal)

== ENCOUNTER → 2022-10-13 | Outpatient (REF) | payer OTHER | LOC: M LAB REF 16:28 | PROVIDERS: ATTEND Physician Assistant | DX: Z79.899 Other long term (current) drug therapy (principal) ==

== ENCOUNTER → 2022-10-13 | Outpatient (REF) | payer OTHER ==
[2022-10-13 17:31] LABS: HEMATOCRIT 39.7 % (36.0-47.0); HEMOGLOBIN 13.2 g/dl (12.0-15.5); MEAN CORPUSCULAR HEMOGLOBIN 29.4 pg (27.0-33.0); MEAN CORPUSCULAR HGB CONC 33.2 g/dl (32.0-36.5); MEAN CORPUSCULAR VOLUME 88.4 fl (80.0-96.0); PLATELET COUNT, AUTOMATED 325 10^3/uL (150-450); RED BLOOD COUNT 4.49 10^6/uL (4.00-5.40); WHITE BLOOD COUNT 5.7 10^3/uL (4.0-10.0)
[2022-10-13 18:02] LABS: BLOOD UREA NITROGEN 20 MG/DL (9-23); CALCIUM LEVEL 9.3 MG/DL (8.5-10.1); CARBON DIOXIDE LEVEL 27 MMOL/L (20-31); CHLORIDE LEVEL 106 MMOL/L (98-107); CREATININE FOR GFR 0.73 MG/DL (0.55-1.30); GLOMERULAR FILTRATION RATE > 60.0 (>60); GLUCOSE, FASTING 82 MG/DL (60-100); IRON (FE) 150 UG/DL (50-170); PERCENT SATURATION 42.6 % (13.2-45.0); POTASSIUM SERUM 4.6 MMOL/L (3.5-5.1); SODIUM LEVEL 140 MMOL/L (136-145); TOTAL IRON BINDING CAPACITY 352 UG/DL (250-425)
[2022-10-13 18:03] LABS: FERRITIN 87.8 NG/ML (7.3-270.7)
[2022-10-13 18:29] LABS: HIV 1&2 SCREEN NEGATIVE (NEGATIVE)
== END ==
LOC: M LAB REF 16:29
PROVIDERS: ATTEND Physician Assistant
DX: Z11.4 Encounter for screening for human immunodeficiency virus [HIV] (principal); Z86.2 Personal history of diseases of the blood and blood-forming organs and certain disorders involving the immune mechanism; Z83.3 Family history of diabetes mellitus

== ENCOUNTER → 2023-05-22 | Outpatient (REF) | payer OTHER ==
[~2023-05-22] MED LIST changes: +AZIT500T5 PO; +CIPR-249 PO; +GABA-282 PO; +KETO10TAB PO; +ONDA4TAB6 PO; +PREG100C2; +TAMS1CAP17 PO; +VYVA30CA4
== END ==
LOC: M SFHCWAGY 13:03
PROVIDERS: ATTEND Obstetrics & Gynecology
DX: Z11.3 Encounter for screening for infections with a predominantly sexual mode of transmission (principal); Z12.4 Encounter for screening for malignant neoplasm of cervix

== ENCOUNTER → 2023-07-24 | Outpatient (REF) | payer OTHER ==
[2023-07-24 18:23] LABS: ALBUMIN 4.6 G/DL (3.2-5.2); ALKALINE PHOSPHATASE 65 U/L (46-116); ALT/SGPT 22 U/L (7.0-40); AST/SGOT 14 U/L (<34); BILIRUBIN,TOTAL 0.4 MG/DL (0.3-1.2); BLOOD UREA NITROGEN 21 MG/DL (9-23); CALCIUM LEVEL 9.6 MG/DL (8.5-10.1); CARBON DIOXIDE LEVEL 25 MMOL/L (20-31); CHLORIDE LEVEL 105 MMOL/L (98-107); CREATININE FOR GFR 0.67 MG/DL (0.55-1.30); GLOMERULAR FILTRATION RATE > 60.0 (>60); GLUCOSE, FASTING 85 MG/DL (60-100); SODIUM LEVEL 140 MMOL/L (136-145); TOTAL PROTEIN 7.2 G/DL (5.7-8.2)
== END ==
LOC: M LAB REF 17:17
PROVIDERS: ATTEND Physician Assistant
DX: Z83.3 Family history of diabetes mellitus (principal)

== ENCOUNTER → 2023-08-06 | Outpatient (REF) | payer OTHER | LOC: M LAB REF 16:28 | PROVIDERS: ATTEND Physician Assistant | DX: Z79.899 Other long term (current) drug therapy (principal) ==

== ENCOUNTER → 2023-08-08 | Outpatient (REF) | payer OTHER ==
[2023-08-08 17:55] LABS: BASO # 0.1 10^3/uL (0.0-0.2); BASO % 0.7 % (0.0-1.0); EOS # 0.3 10^3/uL (0.0-0.5); EOS % 4.1 % (0.0-3.0); HEMATOCRIT 39.5 % (36.0-47.0); LYMPH # 1.5 10^3/uL (1.5-5.0); MEAN CORPUSCULAR HEMOGLOBIN 30.2 pg (27.0-33.0); MEAN CORPUSCULAR HGB CONC 32.9 g/dl (32.0-36.5); MEAN CORPUSCULAR VOLUME 91.9 fl (80.0-96.0); MONO # 0.4 10^3/uL (0.0-0.8); MONO % 5.9 % (2.0-8.0); NEUTROPHILS # 4.9 10^3/uL (1.5-8.5); NEUTROPHILS % 67.3 % (36.0-66.0); PLATELET COUNT, AUTOMATED 362 10^3/uL (150-450); WHITE BLOOD COUNT 7.3 10^3/uL (4.0-10.0)
[2023-08-08 18:25] LABS: MAGNESIUM LEVEL 1.7 MG/DL (1.8-2.4)
[2023-08-08 18:29] LABS: FOLATE 19.9 NG/ML (>5.4)
== END ==
LOC: M LAB REF 16:22
PROVIDERS: ATTEND Physician Assistant
DX: M54.32 Sciatica, left side (principal); R25.2 Cramp and spasm

== ENCOUNTER → 2023-10-11 | Outpatient (CLI) | payer OTHER ==
[~2023-10-11] MED LIST changes: +ONDA-282 PO; -ONDA4TAB6 PO
== END ==
LOC: M EKG 10:12
PROVIDERS: ATTEND Nurse Practitioner Psychiatric/Mental Health
DX: F43.20 Adjustment disorder, unspecified (principal); Z79.899 Other long term (current) drug therapy

== ENCOUNTER → 2024-01-04 | Outpatient (CLI) | payer OTHER ==
[2024-01-06 13:52] LABS: MUMPS VIRUS IgG ANTIBODY 49.5 AU/mL (>10.99)
== END ==
LOC: M WUC 11:39
PROVIDERS: ATTEND Physician Assistant
DX: Z76.89 Persons encountering health services in other specified circumstances (principal)

== ENCOUNTER → 2024-02-06 | Outpatient (CLI) | payer OTHER ==
[~2024-02-06] MED LIST changes: +GABA-1172 PO; -GABA-282 PO
== END ==
LOC: M RAD 16:06
PROVIDERS: ATTEND Physician Assistant
DX: N20.0 Calculus of kidney (principal)

== ENCOUNTER → 2024-02-06 | Outpatient (REF) | payer OTHER | LOC: M LAB REF 16:18 | PROVIDERS: ATTEND Physician Assistant | DX: R10.9 Unspecified abdominal pain (principal) ==

== ENCOUNTER → 2024-03-17 | Outpatient (REF) | payer OTHER ==
[2024-03-18 11:42] LABS: APPEARANCE, URINE CLOUDY (CLEAR); BACTERIA, URINE AUTO NEGATIVE (NEGATIVE); BILIRUBIN, URINE AUTO NEGATIVE (NEGATIVE); BLOOD, URINE BLOOD 2+ (NEGATIVE); CALCIUM OXALATE CRYSTALS SMALL; COLOR, URINE YELLOW (YELLOW); GLUCOSE, URINE (UA) AUTO NEGATIVE (NEGATIVE); KETONE, URINE AUTO NEGATIVE (NEGATIVE); LEUKOCYTE ESTERASE, URINE AUTO TRACE (NEGATIVE); MUCUS, URINE LARGE (NEGATIVE); NITRITE, URINE AUTO NEGATIVE (NEGATIVE); PROTEIN, URINE AUTO 1+ mg/dL (NEGATIVE); RBC, URINE AUTO 19 /HPF (0-3); SPECIFIC GRAVITY URINE AUTO 1.026 (1.002-1.035); SQUAMOUS EPITHELIAL CELL UR AU 4 /HPF (0-6); UROBILINOGEN, URINE AUTO 0.2 mg/dL (0.0-2.0); WBC, URINE AUTO 12 /HPF (0-3)
== END ==
LOC: M SMT 09:47
PROVIDERS: ATTEND Specialist
DX: N20.0 Calculus of kidney (principal)

== ENCOUNTER → 2024-03-19 | Outpatient (CLI) | payer OTHER ==
[2024-03-19 13:59] LABS: HEMATOCRIT 43.9 % (36.0-47.0); HEMOGLOBIN 14.4 g/dl (12.0-15.5); MEAN CORPUSCULAR HEMOGLOBIN 29.8 pg (27.0-33.0); MEAN CORPUSCULAR HGB CONC 32.8 g/dl (32.0-36.5); MEAN CORPUSCULAR VOLUME 90.7 fl (80.0-96.0); PLATELET COUNT, AUTOMATED 341 10^3/uL (150-450); RED BLOOD COUNT 4.84 10^6/uL (4.00-5.40); WHITE BLOOD COUNT 6.3 10^3/uL (4.0-10.0)
[2024-03-19 14:20] LABS: HEMOGLOBIN A1c 4.9 % (4.0-6.0)
== END ==
LOC: M PLALAB 11:28
PROVIDERS: ATTEND Obstetrics & Gynecology
DX: R53.82 Chronic fatigue, unspecified (principal)

== ENCOUNTER → 2024-04-01 | Outpatient (CLI) | payer OTHER | LOC: M PLAIMG 12:32 | PROVIDERS: ATTEND Specialist | DX: N20.0 Calculus of kidney (principal) ==

== ENCOUNTER → 2024-04-28 | Outpatient (CLI) | payer OTHER | LOC: M WHC 11:04 | PROVIDERS: ATTEND Obstetrics & Gynecology | DX: R10.2 Pelvic and perineal pain (principal); R93.89 Abnormal findings on diagnostic imaging of other specified body structures ==

== ENCOUNTER 2024-05-26 05:16 | Emergency (ER) | payer OTHER ==
[~2024-05-26] VITALS: Ht 167.6 cm; Wt 72.2 kg
[2024-05-26] MEDS ORDERED: IBUP-1114 PO (07:21)
[2024-05-26] MEDS ORDERED: ACET500P3 PO (07:21)
[2024-05-26] MEDS ORDERED: AMOX875T2 PO (11:27)
[2024-05-26] MEDS: AUGMENTIN 875 MG TAB PO ONE (11:33)
[2024-05-26] MEDS: KETOROLAC 60MG 2ML VIAL IM ONE (11:35)
[2024-05-26 11:40] VITALS: BP 124/60; TEMP 96.7; O2SAT 100
== END 2024-05-26 11:43 | disposition home or self-care (01) ==
LOC: M ED 05:16
DX: K04.7 Periapical abscess without sinus (principal); F17.200 Nicotine dependence, unspecified, uncomplicated; Z79.899 Other long term (current) drug therapy
CPT/HCPCS: 96372; 99283; J1885

== ENCOUNTER → 2024-07-03 | Outpatient (REF) | payer OTHER ==
[~2024-07-03] MED LIST changes: +ACET500P3 PO; +AMOX875T2 PO; +IBUP-1114 PO
[2024-07-05 13:01] LABS: HPV APTIMA Detected (Not Detected)
== END ==
LOC: M SFHCWAGY 15:27
PROVIDERS: ATTEND Obstetrics & Gynecology
DX: Z12.4 Encounter for screening for malignant neoplasm of cervix (principal); R87.610 Atypical squamous cells of undetermined significance on cytologic smear of cervix (ASC-US)

== ENCOUNTER → 2024-07-09 | Outpatient (REF) | payer OTHER ==
[2024-07-09 17:52] LABS: APPEARANCE, URINE HAZY (CLEAR); BACTERIA, URINE AUTO NEGATIVE (NEGATIVE); BILIRUBIN, URINE AUTO NEGATIVE (NEGATIVE); BLOOD, URINE BLOOD 2+ (NEGATIVE); COLOR, URINE YELLOW (YELLOW); GLUCOSE, URINE (UA) AUTO NEGATIVE (NEGATIVE); KETONE, URINE AUTO NEGATIVE (NEGATIVE); LEUKOCYTE ESTERASE, URINE AUTO NEGATIVE (NEGATIVE); MUCUS, URINE SMALL (NEGATIVE); NITRITE, URINE AUTO NEGATIVE (NEGATIVE); PROTEIN, URINE AUTO NEGATIVE (NEGATIVE); RBC, URINE AUTO 33 /HPF (0-3); SPECIFIC GRAVITY URINE AUTO 1.025 (1.002-1.035); SQUAMOUS EPITHELIAL CELL UR AU 1 /HPF (0-6); UROBILINOGEN, URINE AUTO 0.2 mg/dL (0.0-2.0); WBC, URINE AUTO 3 /HPF (0-3)
== END ==
LOC: M SMT 16:48
PROVIDERS: ATTEND Specialist
DX: R31.29 Other microscopic hematuria (principal)

== ENCOUNTER → 2024-09-02 | Outpatient (CLI) | payer OTHER ==
[2024-09-02 11:27] LABS: HEMATOCRIT 42.9 % (36.0-47.0); HEMOGLOBIN 14.2 g/dl (12.0-15.5); MEAN CORPUSCULAR HEMOGLOBIN 29.2 pg (27.0-33.0); MEAN CORPUSCULAR HGB CONC 33.1 g/dl (32.0-36.5); MEAN CORPUSCULAR VOLUME 88.1 fl (80.0-96.0); PLATELET COUNT, AUTOMATED 349 10^3/uL (150-450); RED BLOOD COUNT 4.87 10^6/uL (4.00-5.40); WHITE BLOOD COUNT 5.5 10^3/uL (4.0-10.0)
[2024-09-02 11:55] LABS: ALBUMIN 4.3 G/DL (3.2-5.2); ALKALINE PHOSPHATASE 84 U/L (35-104); ALT/SGPT 21 U/L (7.0-40); AST/SGOT 9 U/L (<34); BILIRUBIN,TOTAL 0.3 MG/DL (0.3-1.2); BLOOD UREA NITROGEN 20 MG/DL (9-23); CALCIUM LEVEL 9.8 MG/DL (8.5-10.1); CARBON DIOXIDE LEVEL 28 MMOL/L (20-31); CHLORIDE LEVEL 104 MMOL/L (98-107); FERRITIN 46.3 NG/ML (7.3-270.7); GLOMERULAR FILTRATION RATE > 90.0 (>60); GLUCOSE, FASTING 77 MG/DL (60-100); IRON (FE) 65 UG/DL (50-170); POTASSIUM SERUM 4.2 MMOL/L (3.5-5.1); SODIUM LEVEL 140 MMOL/L (136-145); TOTAL IRON BINDING CAPACITY 343 UG/DL (250-425); TOTAL PROTEIN 7.2 G/DL (5.7-8.2)
[2024-09-02 11:56] LABS: THYROID STIMULATING HORMONE 2.239 uIU/ML (0.55-4.78); TOTAL 25(OH) VITAMIN D 46.3 NG/ML (20.0-100.0); VITAMIN B12 LEVEL 510 PG/ML (211-911)
== END ==
LOC: M LAB 10:03
PROVIDERS: ATTEND Nurse Practitioner Psychiatric/Mental Health
DX: Z79.899 Other long term (current) drug therapy (principal)

== ENCOUNTER → 2024-09-08 | Outpatient (REF) | payer OTHER | LOC: M SMT 12:57 | PROVIDERS: ATTEND Specialist | DX: R31.29 Other microscopic hematuria (principal) ==

== ENCOUNTER → 2024-09-11 | Outpatient (REF) | payer OTHER | LOC: M LAB REF 17:12 | PROVIDERS: ATTEND Physician Assistant | DX: M51.26 Other intervertebral disc displacement, lumbar region (principal) ==

== ENCOUNTER → 2024-12-02 | Outpatient (REF) | payer OTHER | LOC: M SFHCWAGY 15:22 | PROVIDERS: ATTEND Obstetrics & Gynecology | DX: R87.612 Low grade squamous intraepithelial lesion on cytologic smear of cervix (LGSIL) (principal); N72 Inflammatory disease of cervix uteri ==